=== PATIENT | female | born 1970 | race Caucasian/White ===

== ENCOUNTER 2016-09-27 15:00 | Emergency (ER) | payer BC, OTHER ==
[~2016-09-27] VITALS: Ht 154.9 cm; Wt 65.0 kg
[~2016-09-27 15:00] MED LIST: DEPO150I
[2016-09-27 15:04] VITALS: BP 143/99; PULSE 100; RESP 20; TEMP 97.8; O2SAT 98
[2016-09-27] MEDS ORDERED: [UNRECOGNIZED DRUG - REMARK] PO (15:19)
--- NOTE | 2016-09-27 15:40 | PD ---
HPI Chief Complaint: Anxiety Time Seen by Provider: 15:17 Travel History International Travel<30 days: No Contact w/Intl Traveler<30days: No Traveled to known affect area: No History of Present Illness HPI Patient is a 46-year-old female who presents to emergency room for evaluation of amnesia. Patient reports that she does not remember what happened from 9 AM until 1 PM this afternoon. 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 Patient reports that her work friend called her at 1 PM as she was as she was supposed to be on her computer working. Patient reports that she was in bed with her animals sleeping. Reports that she has no recollection of what happened from 9am until she woke up this afternoon. Reports that she did go through her phone and her work log and does know that she spoke to her boss and did work this morning. Reports "i just cant remember this morning." Patient reports no history of this in the past. Denies use of drugs/alcohol. Denies si/hi. Denies any other c/o. PFSH Past Medical History High Cholesterol: Yes Diminished Hearing: No Tetanus Vaccination: > 5 Years Influenza Vaccination: No ?: Not Menopausal: Yes : 2 Para: 1 : 1 Past Surgical History Surgical History: No Previous Surgery Social History Alcohol Use: Yes ("4-5 beers every night") Tobacco Use: Yes (Social) Substance Use: No Allergies-Medications (Allergen,Severity, Reaction): Coded Allergies: No Known Allergies (Verified , 09/27/16) Reported Meds & Prescriptions Reported Meds & Active Scripts Active Reported [Cholesterol pill] 1 Tab PO DAILY Review of Systems General / Constitutional: No: Fever Eyes: No: Visual changes HENT: No: Headaches Cardiovascular: No: Chest Pain or Discomfort Respiratory: No: Shortness of Breath Gastrointestinal: No: Abdominal Pain Genitourinary: No: Dysuria Musculoskeletal: No: Pain Skin: No Rash Neurologic: Positive: Other (amnesia), No: Weakness Psychiatric: No: Depression Endocrine: No: Polydipsia Hematologic/Lymphatic: No: Easy Bruising Physical Exam Narrative GENERAL: nad, nontoxic SKIN: Focused skin assessment warm/dry. HEAD: Atraumatic. Normocephalic. EYES: Pupils equal and round. No scleral icterus. No injection or drainage. ENT: No nasal bleeding or discharge. Mucous membranes pink and moist. NECK: Trachea midline. No JVD. CARDIOVASCULAR: Regular rate and rhythm. No murmur appreciated. RESPIRATORY: No accessory muscle use. Clear to auscultation. Breath sounds equal bilaterally. GASTROINTESTINAL: Abdomen soft, non-tender, nondistended. Hepatic and splenic margins not palpable. MUSCULOSKELETAL: No obvious deformities. No clubbing. No cyanosis. No edema. NEUROLOGICAL: Awake and alert. No obvious cranial nerve deficits. Motor grossly within normal limits. Normal speech. PSYCHIATRIC: anxious affect Data Data Last Documented VS Vital Signs Date Time Temp Pulse Resp B/P Pulse Ox O2 Delivery O2 Flow Rate FiO2 09/27/16 15:04 97.8 100 20 143/99 98 Orders Complete Blood Count With Diff (09/27/16 15:27) Comprehensive Metabolic Panel (09/27/16 15:27) Urinalysis - C+S If Indicated (09/27/16 15:27) Iv Access Insert/Monitor (09/27/16 15:27) Ecg Monitoring (09/27/16 15:27) Drug Screen, Random Urine (09/27/16 15:27) Ct Brain W/O Iv Contrast(Rout) (09/27/16 15:44) Ed Urine Pregnancytest Poc (09/27/16 15:44) Labs Laboratory Tests Test 09/27/16 09/27/16 15:30 15:35 White Blood Count 4.8 TH/MM3 Red Blood Count 4.59 MIL/MM3 Hemoglobin 14.7 GM/DL Hematocrit 43.4 % Mean Corpuscular Volume 94.5 FL Mean Corpuscular Hemoglobin 32.1 PG Mean Corpuscular Hemoglobin 34.0 % Concent Red Cell Distribution Width 12.0 % Platelet Count 221 TH/MM3 Mean Platelet Volume 6.8 FL Neutrophils (%) (Auto) 48.5 % Lymphocytes (%) (Auto) 39.1 % Monocytes (%) (Auto) 10.3 % Eosinophils (%) (Auto) 1.2 % Basophils (%) (Auto) 0.9 % Neutrophils # (Auto) 2.3 TH/MM3 Lymphocytes # (Auto) 1.9 TH/MM3 Monocytes # (Auto) 0.5 TH/MM3 Eosinophils # (Auto) 0.1 TH/MM3 Basophils # (Auto) 0.0 TH/MM3 CBC Comment DIFF FINAL Differential Comment Sodium Level 139 MEQ/L Potassium Level 3.8 MEQ/L Chloride Level 106 MEQ/L Carbon Dioxide Level 22.3 MEQ/L Anion Gap 11 MEQ/L Blood Urea Nitrogen 11 MG/DL Creatinine 0.64 MG/DL Estimat Glomerular Filtration 100 ML/MIN Rate Random Glucose 98 MG/DL Calcium Level 8.0 MG/DL Total Bilirubin 0.3 MG/DL Aspartate Amino Transf 53 U/L (AST/SGOT) Alanine Aminotransferase 50 U/L (ALT/SGPT) Alkaline Phosphatase 61 U/L Total Protein 7.4 GM/DL Albumin 3.6 GM/DL Urine Color STRAW Urine Turbidity CLEAR Urine pH 5.5 Urine Specific [place] 1.005 Urine Protein NEG mg/dL Urine Glucose (UA) NEG mg/dL Urine Ketones NEG mg/dL Urine Occult Blood NEG Urine Nitrite NEG Urine Bilirubin NEG Urine Leukocyte Esterase NEG Urine RBC 0-3 /hpf Urine WBC 0-2 /hpf Urine Squamous Epithelial 0-5 /hpf Cells Microscopic Urinalysis Comment CULT NOT INDICATED Urine Opiates Screen NEG Urine Barbiturates Screen NEG Urine Amphetamines Screen NEG Urine Benzodiazepines Screen NEG Urine Cocaine Screen NEG Urine Cannabinoids Screen NEG [facility] Medical Decision Making Medical Screen Exam Complete: Yes Emergency Medical Condition: Yes Interpretation(s) Vital Signs Date Time Temp Pulse Resp B/P Pulse Ox O2 Delivery O2 Flow Rate FiO2 09/27/16 15:04 97.8 100 20 143/99 98 Differential Diagnosis transient global amnesia is in the differential although patient does not have repetitive speech, psychogenic disorder Narrative Course 46 year old female who presents to ER with c/o of amnesia. Patient unsure of what occurred between 9-1pm this afternoon. Patient here to find out "why I can 't remember what happened." labs ordered. will place patient on monitor Laboratory Tests Test 09/27/16 09/27/16 15:30 15:35 White Blood Count 4.8 TH/MM3 (4.0-11.0) Red Blood Count 4.59 MIL/MM3 (4.00-5.30) Hemoglobin 14.7 GM/DL (11.6-15.3) Hematocrit 43.4 % (35.0-46.0) Mean Corpuscular Volume 94.5 FL (80.0-100.0) Mean Corpuscular Hemoglobin 32.1 PG (27.0-34.0) Mean Corpuscular Hemoglobin 34.0 % Concent (32.0-36.0) Red Cell Distribution Width 12.0 % (11.6-17.2) Platelet Count 221 TH/MM3 (150-450) Mean Platelet Volume 6.8 FL (7.0-11.0) Neutrophils (%) (Auto) 48.5 % (16.0-70.0) Lymphocytes (%) (Auto) 39.1 % (9.0-44.0) Monocytes (%) (Auto) 10.3 % (0.0-8.0) Eosinophils (%) (Auto) 1.2 % (0.0-4.0) Basophils (%) (Auto) 0.9 % (0.0-2.0) Neutrophils # (Auto) 2.3 TH/MM3 (1.8-7.7) Lymphocytes # (Auto) 1.9 TH/MM3 (1.0-4.8) Monocytes # (Auto) 0.5 TH/MM3 (0-0.9) Eosinophils # (Auto) 0.1 TH/MM3 (0-0.4) Basophils # (Auto) 0.0 TH/MM3 (0-0.2) CBC Comment DIFF FINAL Differential Comment Sodium Level 139 MEQ/L (136-145) Potassium Level 3.8 MEQ/L (3.5-5.1) Chloride Level 106 MEQ/L (98-107) Carbon Dioxide Level 22.3 MEQ/L (21.0-32.0) Anion Gap 11 MEQ/L (5-15) Blood Urea Nitrogen 11 MG/DL (7-18) Creatinine 0.64 MG/DL (0.50-1.00) Estimat Glomerular Filtration 100 ML/MIN Rate (>89) Random Glucose 98 MG/DL (74-106) Calcium Level 8.0 MG/DL (8.5-10.1) Total Bilirubin 0.3 MG/DL (0.2-1.0) Aspartate Amino Transf 53 U/L (15-37) (AST/SGOT) Alanine Aminotransferase 50 U/L (10-53) (ALT/SGPT) Alkaline Phosphatase 61 U/L (45-117) Total Protein 7.4 GM/DL (6.4-8.2) Albumin 3.6 GM/DL (3.4-5.0) Urine Barbiturates Screen NEG (NEG) Urine Amphetamines Screen NEG (NEG) Urine Benzodiazepines Screen NEG (NEG) Urine Cocaine Screen NEG (NEG) Urine Cannabinoids Screen NEG (NEG) CT of head with no acute intracranial process. All labs and all studies reviewed. Unsure why patient has amnesia from this morning. Patient with benign neuro exam this time. Will discharge patient to home with outpatient follow-up with neurology. Diagnosis Primary Impression: Amnesia memory loss Referrals: Jethro Krishna MD Patient Instructions: General Instructions Additional Instructions: Please follow-up with neurologist as soon as possible Please follow-up with a primary care doctor in 2-3 days Return to emergency room as needed Disposition: 01 DISCHARGE HOME Condition: Stable Aleena Schroeder DO Sep 27, 2016 15:40
[2016-09-27 15:48] LABS: AUTOMATED NEUTROPHIL # 2.3 TH/MM3 (1.8-7.7); BASOPHIL % 0.9 % (0.0-2.0); EOSINOPHIL # 0.1 TH/MM3 (0-0.4); EOSINOPHIL % 1.2 % (0.0-4.0); HEMATOCRIT 43.4 % (35.0-46.0); HEMO FLAGS DIFF FINAL; LYMPH % 39.1 % (9.0-44.0); LYMPHOCYTE # 1.9 TH/MM3 (1.0-4.8); MEAN CELL VOLUME 94.5 FL (80.0-100.0); MEAN CORPUSCULAR HEMOGLOBIN 32.1 PG (27.0-34.0); MONO % 10.3 % (0.0-8.0); NEUT % 48.5 % (16.0-70.0); PLATELET COUNT 221 TH/MM3 (150-450); RED BLOOD COUNT 4.59 MIL/MM3 (4.00-5.30); WHITE BLOOD COUNT 4.8 TH/MM3 (4.0-11.0)
[2016-09-27 15:50] LABS: BLOOD, URINE NEG (NEG); GLUCOSE,URINE NEG (NEG); KETONE, URINE NEG (NEG); NITRITE,URINE NEG (NEG); PH, URINE 5.5 (5.0-8.5)
[2016-09-27 15:55] LABS: CHLORIDE 106 MEQ/L (98-107); POTASSIUM 3.8 MEQ/L (3.5-5.1); SODIUM (NA) 139 MEQ/L (136-145)
[2016-09-27 15:59] LABS: AMPHETAMINE, URINE NEG (NEG); BARBITURATES, URINE NEG (NEG); COCAINE, URINE NEG (NEG)
[2016-09-27 15:59] LABS: ANION GAP 11 MEQ/L (5-15); BICARBONATE 22.3 MEQ/L (21.0-32.0); BLOOD UREA NITROGEN 11 MG/DL (7-18)
[2016-09-27 16:02] LABS: ALT (GPT) 50 U/L (10-53); AST (GOT) 53 U/L (15-37); GLOMERULAR FILTRATION RATE 100 ML/MIN (>89)
[2016-09-27 16:03] LABS: TOTAL BILIRUBIN ADULT 0.3 MG/DL (0.2-1.0)
[2016-09-27 16:05] LABS: ALKALINE PHOSPHATASE 61 U/L (45-117)
--- NOTE | 2016-09-27 16:23 | RADHPO ---
EXAM DATE/TIME: 09/27/2016 16:04 [place] COMPARISON: No previous studies available for comparison. INDICATIONS : Episode of amnesia. RADIATION DOSE: 64.38 CTDIvol (mGy) MEDICAL HISTORY : None SURGICAL HISTORY : None. ENCOUNTER: Initial ACUITY: 1 day PAIN SCALE: 0/10 LOCATION: cranial TECHNIQUE: Multiple contiguous axial images were obtained of the head. Using automated exposure control and adj ustment of the mA and/or kV according to patient size, radiation dose was kept as low as reasonably a chievable to obtain optimal diagnostic quality images. FINDINGS: CEREBRUM: The ventricles are normal for age. No evidence of midline shift, mass lesion, hemorrhage or acute in farction. No extra-axial fluid collections are seen. POSTERIOR FOSSA: The cerebellum and brainstem are intact. The 4th ventricle is midline. The cerebellopontine angle i s unremarkable. EXTRACRANIAL: The visualized portion of the orbits is intact. SKULL: The calvaria is intact. No evidence of skull fracture. CONCLUSION: Unremarkable exam. Reyes Thakkar MD on September 27, 2016 at 16:20 Board Certified Radiologist. This report was verified electronically.
[2016-09-27 16:26] LABS: COMMENT (UR) CULT NOT INDICATED; CULTURE IF INDICATED CULT NOT INDICATED; RBC, URINE 0-3 /hpf (0-3); SQUAMOUS EPITHELIAL CELL URINE 0-5 /hpf (0-5); URINE COLOR STRAW (YELLW/STRAW); WBC, URINE 0-2 /hpf (0-5)
== END 2016-09-27 16:48 | disposition home or self-care (01) ==
LOC: PHED 15:00
DX: R41.3 Other amnesia (principal); E78.00 Pure hypercholesterolemia, unspecified; Z72.0 Tobacco use
CPT/HCPCS: 70450; 80053; 80307; 81001; 84703; 85025

== ENCOUNTER 2016-11-23 20:30 | Emergency (ER) | payer BC ==
[~2016-11-23] VITALS: Ht 157.5 cm; Wt 63.0 kg
[~2016-11-23 20:30] MED LIST changes: -DEPO150I; +[UNRECOGNIZED DRUG - REMARK] PO
[2016-11-23 20:36] VITALS: BP 152/97; PULSE 101; RESP 24; TEMP 98.4; O2SAT 100
[2016-11-23] MEDS ORDERED: [UNRECOGNIZED DRUG - REMARK] PO (20:49)
[2016-11-23] MEDS ORDERED: SODIUM CHLOR 0.9% 1000 ML INJ 1,000 ML IV SCH (20:49)
[2016-11-23] MEDS ORDERED: ONDANSETRON HCL 4 MG/2 ML VIAL IVP ONE (21:00)
[2016-11-23] MEDS ORDERED: SODIUM CHLORIDE 0.9% FLUSH 10 ML FLUSH IV FLUSH PRN (21:00)
[2016-11-23] MEDS: SODIUM CHLOR 0.9% 1000 ML INJ 1,000 ML IV SCH ×2 (21:12→22:41)
[2016-11-23 21:13] LABS: AUTOMATED NEUTROPHIL # 9.5 TH/MM3 (1.8-7.7); BASOPHIL # 0.1 TH/MM3 (0-0.2); BASOPHIL % 0.7 % (0.0-2.0); LYMPH % 7.9 % (9.0-44.0); LYMPHOCYTE # 0.9 TH/MM3 (1.0-4.8); MEAN CELL VOLUME 94.3 FL (80.0-100.0); MEAN CORPUSCULAR HEMOGLOBIN 32.9 PG (27.0-34.0); MEAN CORPUSCULAR HGB CONC 34.9 % (32.0-36.0); MONO % 7.3 % (0.0-8.0); NEUT % 84.1 % (16.0-70.0); PLATELET COUNT 244 TH/MM3 (150-450); RED BLOOD COUNT 4.45 MIL/MM3 (4.00-5.30); RED CELL DISTRIBUTION WIDTH 12.8 % (11.6-17.2); WHITE BLOOD COUNT 11.3 TH/MM3 (4.0-11.0)
[2016-11-23 21:14] VITALS: RESP 18; O2SAT 99
[2016-11-23 21:15] LABS: BLOOD, URINE TRACE (NEG); GLUCOSE,URINE NEG (NEG); KETONE, URINE 40 mg/dL (NEG); NITRITE,URINE NEG (NEG); PH, URINE 5.5 (5.0-8.5)
[2016-11-23 21:21] LABS: URINE COLOR YELLOW (YELLW/STRAW)
[2016-11-23 21:22] LABS: COMMENT (UR) CULT NOT INDICATED; CULTURE IF INDICATED CULT NOT INDICATED; SQUAMOUS EPITHELIAL CELL URINE 0-5 /hpf (0-5)
[2016-11-23 21:23] LABS: HEMO FLAGS DIFF FINAL
[2016-11-23 21:25] LABS: CHLORIDE 95 MEQ/L (98-107); SODIUM (NA) 134 MEQ/L (136-145)
[2016-11-23 21:29] LABS: ANION GAP 17 MEQ/L (5-15); BICARBONATE 21.9 MEQ/L (21.0-32.0); BLOOD UREA NITROGEN 6 MG/DL (7-18)
[2016-11-23 21:32] LABS: ALT (GPT) 82 U/L (10-53); AST (GOT) 148 U/L (15-37); GLOMERULAR FILTRATION RATE 88 ML/MIN (>89)
[2016-11-23 21:33] LABS: TOTAL BILIRUBIN ADULT 0.8 MG/DL (0.2-1.0)
[2016-11-23 21:34] LABS: ALKALINE PHOSPHATASE 76 U/L (45-117)
[2016-11-23 22:00] VITALS: BP 161/80; PULSE 92; RESP 20; O2SAT 99
[2016-11-23] MEDS ORDERED: ONDANSETRON HCL 4 MG/2 ML VIAL IV ONE (22:15)
[2016-11-23] MEDS ORDERED: POTASSIUM CHLORIDE 20 MEQ CONTROLLED RELEASE TAB PO ONE (22:30)
--- NOTE | 2016-11-23 22:58 | PD ---
HPI Chief Complaint: GI Complaint Time Seen by Provider: 20:49 Travel History International Travel<30 days: No Contact w/Intl Traveler<30days: No Traveled to known affect area: No History of Present Illness HPI The patient is a 46-year-old female complains of nausea, vomiting and diarrhea without any abdominal pain for 2 days. She also has had chills but has not recorded any fever at home. She denies any major medical problems or bowel problems. She does feel weak and dehydrated. She denies any blood in the stool or vomitus. She still has her appendix and gallbladder. She has been replacing her fluids with hypotonic solutions, mostly water. The patient states she has always been a heavy drinker. PFS Past Medical History High Cholesterol: Yes Diminished Hearing: No Immunizations Current: No Tetanus Vaccination: Unknown Influenza Vaccination: No ?: Not Menopausal: Yes : 2 Para: 1 : 1 Social History Alcohol Use: Yes ("4-5 beers every night") Tobacco Use: Yes (Social) Substance Use: No Allergies-Medications (Allergen,Severity, Reaction): Coded Allergies: No Known Allergies (Verified , 11/23/16) Reported Meds & Prescriptions Reported Meds & Active Scripts Active Phenergan (Promethazine HCl) 25 Mg Tablet 25 Mg PO Q6H PRN Reported [Antidepresant Med] 1 Caplet PO DAILY Review of Systems Except as stated in HPI: all other systems reviewed are Neg Physical Exam Narrative GENERAL: The patient is alert, moderately dehydrated appearing, oriented 3 in slight apparent distress with her nausea. Her vital signs show blood pressure 152/97 with a heart rate of 101 and respirations 24 but are otherwise normal. SKIN: Focused skin assessment warm/dry. HEAD: Atraumatic. Normocephalic. EYES: Pupils equal and round. No scleral icterus. No injection or drainage. ENT: No nasal bleeding or discharge. Mucous membranes pink and minimally dry. NECK: Trachea midline. No JVD. CARDIOVASCULAR: Regular rate and rhythm. No murmur appreciated. RESPIRATORY: No accessory muscle use. Clear to auscultation. Breath sounds equal bilaterally. GASTROINTESTINAL: Abdomen soft, non-tender, nondistended. Hepatic and splenic margins not palpable. No guarding or rebound is present. MUSCULOSKELETAL: No obvious deformities. No clubbing. No cyanosis. No edema. NEUROLOGICAL: Awake and alert. No obvious cranial nerve deficits. Motor grossly within normal limits. Normal speech. PSYCHIATRIC: Appropriate mood and affect; insight and judgment normal. Data Data Last Documented VS Vital Signs Date Time Temp Pulse Resp B/P Pulse Ox O2 Delivery O2 Flow Rate FiO2 11/23/16 21:15 20 11/23/16 21:14 99 Room Air 11/23/16 20:36 98.4 101 152/97 Orders Complete Blood Count With Diff (11/23/16 20:49) Comprehensive Metabolic Panel (11/23/16 20:49) Lipase (11/23/16 20:49) Urinalysis - C+S If Indicated (11/23/16 20:49) Iv Access Insert/Monitor (11/23/16 20:49) Ecg Monitoring (11/23/16 20:49) Oximetry (11/23/16 20:49) Ondansetron Inj (Zofran Inj) (11/23/16 21:00) Sodium Chlor 0.9% 1000 Ml Inj (Ns 1000 M (11/23/16 20:49) Sodium Chloride 0.9% Flush (Ns Flush) (11/23/16 21:00) Sodium Chlor 0.9% 1000 Ml Inj (Ns 1000 M (11/23/16 21:00) Ondansetron Inj (Zofran Inj) (11/23/16 22:15) Potassium Chloride (Kcl) (11/23/16 22:30) Labs Laboratory Tests Test 11/23/16 11/23/16 21:00 21:05 Urine Color YELLOW Urine Turbidity CLEAR Urine pH 5.5 Urine Specific [place] 1.020 Urine Protein TRACE mg/dL Urine Glucose (UA) NEG mg/dL Urine Ketones 40 mg/dL Urine Occult Blood TRACE Urine Nitrite NEG Urine Bilirubin NEG Urine Leukocyte Esterase NEG Urine Squamous Epithelial 0-5 /hpf Cells Microscopic Urinalysis Comment CULT NOT INDICATED White Blood Count 11.3 TH/MM3 Red Blood Count 4.45 MIL/MM3 Hemoglobin 14.6 GM/DL Hematocrit 42.0 % Mean Corpuscular Volume 94.3 FL Mean Corpuscular Hemoglobin 32.9 PG Mean Corpuscular Hemoglobin 34.9 % Concent Red Cell Distribution Width 12.8 % Platelet Count 244 TH/MM3 Mean Platelet Volume 6.7 FL Neutrophils (%) (Auto) 84.1 % Lymphocytes (%) (Auto) 7.9 % Monocytes (%) (Auto) 7.3 % Eosinophils (%) (Auto) 0.0 % Basophils (%) (Auto) 0.7 % Neutrophils # (Auto) 9.5 TH/MM3 Lymphocytes # (Auto) 0.9 TH/MM3 Monocytes # (Auto) 0.8 TH/MM3 Eosinophils # (Auto) 0.0 TH/MM3 Basophils # (Auto) 0.1 TH/MM3 CBC Comment DIFF FINAL Differential Comment Sodium Level 134 MEQ/L Potassium Level 3.0 MEQ/L Chloride Level 95 MEQ/L Carbon Dioxide Level 21.9 MEQ/L Anion Gap 17 MEQ/L Blood Urea Nitrogen 6 MG/DL Creatinine 0.72 MG/DL Estimat Glomerular Filtration 88 ML/MIN Rate Random Glucose 131 MG/DL Calcium Level 8.8 MG/DL Total Bilirubin 0.8 MG/DL Aspartate Amino Transf 148 U/L (AST/SGOT) Alanine Aminotransferase 82 U/L (ALT/SGPT) Alkaline Phosphatase 76 U/L Total Protein 7.6 GM/DL Albumin 3.7 GM/DL Lipase 89 U/L MDM Medical Decision Making Medical Screen Exam Complete: Yes Emergency Medical Condition: Yes Medical Record Reviewed: Yes Interpretation(s) The complete metabolic profile shows a GFR of 88, glucose 131, GOT 148, GPT 82 with sodium 134, potassium 3.0 and anion gap of 17. The lipase is normal. The CBC shows a white count of 11,300 with 84% neutrophils but is otherwise unremarkable. The urine shows trace protein, 40 ketones, trace occult blood but is otherwise normal and culture is not indicated. Differential Diagnosis Viral gastroenteritis, bacterial enteritis, appendicitisunlikely, cholelithiasis with colicunlikely, acute cholecystitisunlikely, urinary tract infection, electrolyte disorder, anemia, pancreatitis Narrative Course It is now 1106 and the patient feels much better. She has drank one glass of Gatorade and has received 2000 cc of saline IV. The nausea has subsided to only minimal nausea. The urine shows evidence of dehydration with 40 ketones. The complete metabolic profile reflects the patient's hypotonic fluid replacement with a low sodium and low potassium. She is told to use Pedialyte or Gatorade. The patient previously had a slight elevation of the AST in September of this year. The elevation of her liver enzymes is probably due to her "heavy drinking". Impression: Viral gastroenteritis Plan: The patient is given Phenergan and told to drink clear liquids such as Pedialyte or Gatorade. Diagnosis Primary Impression: Viral gastroenteritis Additional Impression: Mild dehydration Additional Instructions: As we discussed, increase clear liquids with fluids like Pedialyte or Gatorade. This will replace some of the salts like sodium and potassium that she lose. Stay away from alcohol, that is a very dehydrating substance. Follow-up with your primary care physician next week. Take the Phenergan regularly, 1 every 6 hours initially so that you do not started vomiting again. Med/Other Pt SpecificInfo: Prescription(s) given Scripts Promethazine (Phenergan)25 Mg [id number] Mg PO Q6H PRN (NAUSEA OR VOMITING) #30 TAB Ref 0 Prov:Messi Thompson MD 11/23/16 Disposition: 01 DISCHARGE HOME Condition: Stable Messi Thompson MD Nov 23, 2016 22:58
[2016-11-23] MEDS ORDERED: PROM25TA10 PO (23:13)
[2016-11-23 23:39] VITALS: BP 155/85
== END 2016-11-23 23:35 | disposition home or self-care (01) ==
LOC: PHED 20:30
DX: A08.4 Viral intestinal infection, unspecified (principal); E86.0 Dehydration; E78.00 Pure hypercholesterolemia, unspecified; R68.83 Chills (without fever)
CPT/HCPCS: 80053; 81001; 83690; 85025; 96374; 96376; 99284; J2405; J7030

== ENCOUNTER 2017-09-17 22:14 | Inpatient (IN) | payer BC ==
[~2017-09-17] VITALS: Ht 157.5 cm; Wt 65.9 kg
[~2017-09-17 22:14] MED LIST changes: +PROM25TA10 PO; +[UNRECOGNIZED DRUG - REMARK] PO; -[UNRECOGNIZED DRUG - REMARK] PO
[2017-09-17 22:19] VITALS: BP 174/91; PULSE 119; RESP 20; TEMP 98.2; O2SAT 98
[2017-09-17] MEDS ORDERED: SODIUM CHLOR 0.9% 1000 ML INJ 1,000 ML IV SCH (23:06)
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
[2017-09-17] MEDS ORDERED: MORPHINE SULFATE 4 MG/ML INJ IV PUSH ONE (23:15)
[2017-09-17] MEDS ORDERED: SODIUM CHLORIDE 0.9% FLUSH 10 ML FLUSH IV FLUSH PRN (23:15)
[2017-09-17] MEDS ORDERED: ONDANSETRON HCL 4 MG/2 ML VIAL IVP ONE (23:15)
[2017-09-17] MEDS ORDERED: anti anxiety (23:26)
[2017-09-17] MEDS ORDERED: SODIUM CHLOR 0.9% 1000 ML INJ 1,000 ML IV ONE (23:30)
--- NOTE | 2017-09-17 23:40 | RADRPT ---
EXAM DATE/TIME: 09/17/2017 23:13 [facility] COMPARISON: No previous studies available for comparison. INDICATIONS : Nausea and vomiting with epigastric pain. MEDICAL HISTORY : None. SURGICAL HISTORY : None. ENCOUNTER: Initial ACUITY: 2 days PAIN SCORE: 6/10 LOCATION: Epigastric. FINDINGS: A single view of the chest demonstrates the lungs to be symmetrically aerated without evidence of mas s, infiltrate or effusion. The cardiomediastinal contours are unremarkable. Osseous structures are intact. CONCLUSION: No acute cardiopulmonary disease. Colby Hernandez MD on September 17, 2017 at 23:38 Board Certified Radiologist. This report was verified electronically.
[2017-09-17 23:56] LABS: AUTOMATED NEUTROPHIL # 11.1 TH/MM3 (1.8-7.7); BASOPHIL # 0.1 TH/MM3 (0-0.2); BASOPHIL % 0.6 % (0.0-2.0); HEMATOCRIT 44.1 % (35.0-46.0); HEMOGLOBIN 15.1 GM/DL (11.6-15.3); LYMPH % 5.6 % (9.0-44.0); LYMPHOCYTE # 0.7 TH/MM3 (1.0-4.8); MEAN CELL VOLUME 92.2 FL (80.0-100.0); MEAN CORPUSCULAR HEMOGLOBIN 31.5 PG (27.0-34.0); MEAN CORPUSCULAR HGB CONC 34.2 % (32.0-36.0); MEAN PLATELET VOLUME 6.8 FL (7.0-11.0); MONO % 5.6 % (0.0-8.0); MONOCYTE # 0.7 TH/MM3 (0-0.9); NEUT % 88.2 % (16.0-70.0); PLATELET COUNT 295 TH/MM3 (150-450); RED BLOOD COUNT 4.78 MIL/MM3 (4.00-5.30); WHITE BLOOD COUNT 12.6 TH/MM3 (4.0-11.0)
[2017-09-17 23:57] LABS: PROTHROMBIN TIME - PATIENT 10.6 SEC (9.8-11.6)
[2017-09-18] VITALS (11 sets, daily range): BP systolic 137–178; BP diastolic 73–97; PULSE 67–115; RESP 14–22; TEMP 97.1–99.8; O2SAT 97–98
[2017-09-18] MEDS ORDERED: PIPERACIL-TAZO 4.5 GM PREMIX 100 ML IV STA (00:06)
[2017-09-18 00:11] LABS: ALBUMIN 3.6 GM/DL (3.4-5.0); ALKALINE PHOSPHATASE 91 U/L (45-117); ALT (GPT) 74 U/L (10-53); AST (GOT) 136 U/L (15-37); BICARBONATE 21.2 MEQ/L (21.0-32.0); BLOOD UREA NITROGEN 4 MG/DL (7-18); CALCIUM 8.7 MG/DL (8.5-10.1); CHLORIDE 96 MEQ/L (98-107); CREATININE 0.82 MG/DL (0.50-1.00); GLOMERULAR FILTRATION RATE 75 ML/MIN (>89); GLUCOSE,RANDOM 155 MG/DL (74-106); SODIUM (NA) 133 MEQ/L (136-145); TOTAL BILIRUBIN ADULT 1.4 MG/DL (0.2-1.0); TOTAL PROTEIN 7.7 GM/DL (6.4-8.2)
[2017-09-18] MEDS ORDERED: SODIUM CHLOR 0.9% 1000 ML INJ 1,000 ML IV ONE ×2 (00:15→09:00)
[2017-09-18] MEDS: POTASSIUM CHLOR 20 MEQ PREMIX 100 ML IV SCH ×2 (00:44→03:01)
--- NOTE | 2017-09-18 00:44 | PD ---
Physical Exam Date Seen by Provider: Sep 18, 2017 Time Seen by Provider: 00:41 Narrative accepted in transfer of care from Dr Schroeder Data Data Last Documented VS Vital Signs Date Time Temp Pulse Resp B/P (MAP) Pulse Ox O2 Delivery O2 Flow Rate FiO2 09/17/17 23:29 Room Air 09/17/17 22:19 98.2 119 20 98 Orders Orders Complete Blood Count With Diff (09/17/17 23:06) Comprehensive Metabolic Panel (09/17/17 23:06) Lipase (09/17/17 23:06) Lactic Acid (09/17/17 23:06) Prothrombin Time / Inr (Pt) (09/17/17 23:06) Act Partial Throm Time (Ptt) (09/17/17 23:06) Urinalysis - C+S If Indicated (09/17/17 23:06) Ct Abd/Pel W Iv Contrast(Rout) (09/17/17 23:06) Iv Access Insert/Monitor (09/17/17 23:06) Ecg Monitoring (09/17/17 23:06) Oximetry (09/17/17 23:06) NPO (09/17/17 23:06) Morphine Inj (Morphine Inj) (09/17/17 23:15) Ondansetron Inj (Zofran Inj) (09/17/17 23:15) Sodium Chlor 0.9% 1000 Ml Inj (Ns 1000 M (09/17/17 23:06) Sodium Chloride 0.9% Flush (Ns Flush) (09/17/17 23:15) Chest, Single Ap (09/17/17 23:06) Ed Urine Pregnancytest Poc (09/17/17 23:06) Ct Brain W/O Iv Contrast(Rout) (09/17/17 23:18) Sodium Chlor 0.9% 1000 Ml Inj (Ns 1000 M (09/17/17 23:30) Drug Screen, Random Urine (09/17/17 23:19) Sepsis Workup Initiated (09/18/17 ) Influenzae A/B Antigen (09/18/17 00:06) Blood Culture (09/18/17 00:06) Piperacil-Tazo 4.5 Gm Premix (Zosyn 4.5 (09/18/17 00:06) Sodium Chlor 0.9% 1000 Ml Inj (Ns 1000 M (09/18/17 00:15) Potassium Chlor 20 Meq Premix (Kcl 20 Me (09/18/17 00:30) Electrocardiogram (09/18/17 ) Labs Laboratory Tests Test 09/17/17 23:33 09/18/17 00:33 White Blood Count 12.6 TH/MM3 Red Blood Count 4.78 MIL/MM3 Hemoglobin 15.1 GM/DL Hematocrit 44.1 % Mean Corpuscular Volume 92.2 FL Mean Corpuscular Hemoglobin 31.5 PG Mean Corpuscular Hemoglobin Concent 34.2 % Red Cell Distribution Width 12.0 % Platelet Count 295 TH/MM3 Mean Platelet Volume 6.8 FL Neutrophils (%) (Auto) 88.2 % Lymphocytes (%) (Auto) 5.6 % Monocytes (%) (Auto) 5.6 % Eosinophils (%) (Auto) 0.0 % Basophils (%) (Auto) 0.6 % Neutrophils # (Auto) 11.1 TH/MM3 Lymphocytes # (Auto) 0.7 TH/MM3 Monocytes # (Auto) 0.7 TH/MM3 Eosinophils # (Auto) 0.0 TH/MM3 Basophils # (Auto) 0.1 TH/MM3 CBC Comment DIFF FINAL Differential Comment Prothrombin Time 10.6 SEC Prothromb Time International Ratio 1.0 RATIO Activated Partial Thromboplast Time 22.4 SEC Blood Urea Nitrogen 4 MG/DL Creatinine 0.82 MG/DL Random Glucose 155 MG/DL Total Protein 7.7 GM/DL Albumin 3.6 GM/DL Calcium Level 8.7 MG/DL Alkaline Phosphatase 91 U/L Aspartate Amino Transf (AST/SGOT) 136 U/L Alanine Aminotransferase (ALT/SGPT) 74 U/L Total Bilirubin 1.4 MG/DL Sodium Level 133 MEQ/L Potassium Level 2.9 MEQ/L Chloride Level 96 MEQ/L Carbon Dioxide Level 21.2 MEQ/L Anion Gap 16 MEQ/L Estimat Glomerular Filtration Rate 75 ML/MIN Lactic Acid Level 3.7 mmol/L Lipase 80 U/L [facility] Medical Record Reviewed: Yes Supervised Visit with CHASITY: No Interpretation(s) EKG: Sinus tachycardia rate [address] elevation injury pattern or ectopy noted lactic acid: 3.7, elevated Last Impressions Chest X-Ray 09/17/17 7017 Signed Impressions: Service Date/Time: Sunday, September 17, 2017 23:13 - CONCLUSION: No acute cardiopulmonary disease. Colby Hernandez MD CBC & BMP Diagram 09/17/17 23:33 Total Protein 7.7, Albumin 3.6, Calcium Level 8.7, Alkaline Phosphatase 91, Aspartate Amino Transf (AST/SGOT) 136 H, Alanine Aminotransferase (ALT/SGPT) 74 H, Total Bilirubin 1.4 H Vital Signs Date Time Temp Pulse Resp B/P (MAP) Pulse Ox O2 Delivery O2 Flow Rate FiO2 09/17/17 23:29 Room Air 09/17/17 22:19 98.2 119 20 174/91 (118) 98 Differential Diagnosis accepted in transfer of care from Dr Schroeder; please refer to her dictation Narrative Course accepted in transfer of care from Dr Schroeder; follow up CT's and admission Sepsis Criteria SIRS Criteria (2 or more): Heart rate over 90, WBC > 01213, < 4000 or > 10% bands Severe Sepsis (+one): Lactate >2 Physician Communication Physician Communication call placed to [facility] service for admission Diagnosis Primary Impression: Lactic acidosis Additional Impression: Hypokalemia Admitting Information Admitting Physician Requests: Admit Jacqueline Calzada MD Sep 18, 2017 00:44
[2017-09-18 01:09] LABS: BILIRUBIN, URINE NEG (NEG); BLOOD, URINE NEG (NEG); GLUCOSE,URINE NEG (NEG); KETONE, URINE 15 mg/dL (NEG); NITRITE,URINE NEG (NEG); PH, URINE 5.5 (5.0-8.5); URINE COLOR YELLOW (YELLW/STRAW); URINE LEUKOCYTE ESTERASE NEG (NEG)
[2017-09-18] MEDS ORDERED: IOHEXOL 350 MG/ML 10 ML VIAL (for RAD DIAG) IVCONTRAST ONE (01:13)
[2017-09-18 01:16] LABS: HYALINE CAST, URINE 0-2 /lpf (RARE); SQUAMOUS EPITHELIAL CELL URINE 0-5 /hpf (0-5)
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
[2017-09-18 01:20] LABS: BACTERIA, URINE FEW /hpf
--- NOTE | 2017-09-18 01:21 | RADRPT ---
EXAM DATE/TIME: 09/18/2017 00:53 [facility] COMPARISON: No previous studies available for comparison. INDICATIONS : Nausea. Vomiting. Diarrhea. IV CONTRAST: 100 cc Omnipaque 350 (iohexol) IV ORAL CONTRAST: No oral contrast ingested. RADIATION DOSE: 10.44 CTDIvol (mGy) MEDICAL HISTORY : None SURGICAL HISTORY : None. ENCOUNTER: Initial ACUITY: 1 day PAIN SCALE: 0/10 LOCATION: abdomen and pelvis. TECHNIQUE: Volumetric scanning of the abdomen and pelvis was performed. Using automated exposure control and ad justment of the mA and/or kV according to patient size, radiation dose was kept as low as reasonably achievable to obtain optimal diagnostic quality images. DICOM format image data is available electro nically for review and comparison. FINDINGS: LOWER LUNGS: The visualized lower lungs are clear. LIVER: Homogeneous fatty density without lesion. There is no dilation of the biliary tree. No calcified ga llstones. SPLEEN: Normal size without lesion. PANCREAS: Within normal limits. KIDNEYS: Normal in size and shape. There is no mass, stone or hydronephrosis. ADRENAL GLANDS: Within normal limits. VASCULAR: There is no aortic aneurysm. BOWEL/MESENTERY: The stomach, small bowel, and colon demonstrate no acute abnormality. There is no free intraperitone al air or fluid. Normal appendix. ABDOMINAL WALL: Within normal limits. RETROPERITONEUM: There is no lymphadenopathy. BLADDER: No wall thickening or mass. REPRODUCTIVE: Within normal limits. IUD present. INGUINAL: There is no lymphadenopathy or hernia. MUSCULOSKELETAL: No acute bony abnormality. CONCLUSION: 1. No acute abnormality. 2. Fatty liver. Colby Hernandez MD on September 18, 2017 at 1:17 Board Certified Radiologist. This report was verified electronically.
[2017-09-18] MEDS: SODIUM CHLOR 0.9% 1000 ML INJ 1,000 ML IV SCH ×3 (01:36→20:43)
[2017-09-18] MEDS ORDERED: LACTULOSE SYRUP 20 GM/30 ML CUP PO PRN (01:45)
[2017-09-18] MEDS ORDERED: BISACODYL 10 MG SUPP RECTAL PRN (01:45)
[2017-09-18] MEDS ORDERED: ONDANSETRON HCL 4 MG/2 ML VIAL IVP PRN (01:45)
[2017-09-18] MEDS ORDERED: ACETAMINOPHEN 325 MG TAB PO PRN (01:45)
[2017-09-18] MEDS ORDERED: SODIUM CHLORIDE 0.9% FLUSH 10 ML FLUSH IV FLUSH PRN (01:45)
[2017-09-18] MEDS ORDERED: NALOXONE HCL 0.4 MG/ML AMP IV PUSH PRN (01:45)
[2017-09-18] MEDS ORDERED: SENNOSIDES 8.6 MG TAB PO PRN (01:45)
[2017-09-18] MEDS ORDERED: MAGNESIUM HYDROXIDE SUSP 30 ML CUP PO PRN (01:45)
[2017-09-18] MEDS ORDERED: PHENOL 1.4% SOLN 180 ML BTL OROPHARYNG PRN (06:00)
[2017-09-18] MEDS: SODIUM CHLORIDE 0.9% FLUSH 10 ML FLUSH IV FLUSH SCH ×2 (08:32→20:42)
[2017-09-18] MEDS: DOCUSATE SODIUM 50 MG/SENNA 8.6 MG TAB PO SCH ×2 (08:32→20:41)
[2017-09-18] MEDS ORDERED: THIAMINE INJ 100 MG in SODIUM CHLORIDE 0.9% INJ 100 ML IV ONE (09:00)
[2017-09-18] MEDS ORDERED: THIAMINE HCL 100 MG TAB PO ONE (09:00)
[2017-09-18 09:41] LABS: AUTOMATED NEUTROPHIL # 6.8 TH/MM3 (1.8-7.7); BASOPHIL % 0.3 % (0.0-2.0); EOSINOPHIL % 0.3 % (0.0-4.0); HEMATOCRIT 39.3 % (35.0-46.0); HEMOGLOBIN 13.6 GM/DL (11.6-15.3); LYMPH % 17.6 % (9.0-44.0); LYMPHOCYTE # 1.6 TH/MM3 (1.0-4.8); MEAN CELL VOLUME 92.7 FL (80.0-100.0); MEAN CORPUSCULAR HEMOGLOBIN 32.2 PG (27.0-34.0); MEAN CORPUSCULAR HGB CONC 34.7 % (32.0-36.0); MEAN PLATELET VOLUME 7.1 FL (7.0-11.0); MONO % 9.8 % (0.0-8.0); MONOCYTE # 0.9 TH/MM3 (0-0.9); PLATELET COUNT 223 TH/MM3 (150-450); RED BLOOD COUNT 4.24 MIL/MM3 (4.00-5.30); RED CELL DISTRIBUTION WIDTH 12.5 % (11.6-17.2); WHITE BLOOD COUNT 9.3 TH/MM3 (4.0-11.0)
[2017-09-18 10:12] LABS: ALBUMIN 2.8 GM/DL (3.4-5.0); CALCIUM 7.3 MG/DL (8.5-10.1); CALCIUM-PROTEIN CORRECTED 7.7 MG/DL (8.5-10.1); CREATININE 0.63 MG/DL (0.50-1.00); MAGNESIUM 1.7 MG/DL (1.5-2.5); TOTAL PROTEIN 6.3 GM/DL (6.4-8.2)
[2017-09-18 10:17] LABS: BICARBONATE 22.9 MEQ/L (21.0-32.0)
[2017-09-18 10:20] LABS: TOTAL BILIRUBIN ADULT 1.2 MG/DL (0.2-1.0)
[2017-09-18] MEDS: PIPERACIL-TAZO 4.5 GM PREMIX 100 ML IV SCH ×3 (10:44→20:43)
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
[2017-09-18 12:14] LABS: DIRECT BILIRUBIN ADULT 0.3 MG/DL (0.0-0.2); INDIRECT BILIRUBIN 0.9 MG/DL (0.0-0.8)
[2017-09-18] MEDS: PANTOPRAZOLE SODIUM 40 MG VIAL IV PUSH SCH (12:17)
--- NOTE | 2017-09-18 15:33 | EKG ---
Date Performed: 09/18/2017 Time Performed: 00:36:27 PTAGE: 47 years EKG: SINUS TACHYCARDIA ABNORMAL RHYTHM ECG NO PREVIOUS TRACING DOCTOR: Tru Ring Interpretating Date/Time 09/18/2017 15:23:36
[2017-09-18] MEDS ORDERED: ENALAPRILAT 1.25 MG/ML VIAL IV PUSH PRN (22:45)
[2017-09-19] VITALS: BP 161/78; PULSE 65; RESP 20; TEMP 98.1; O2SAT 99
[2017-09-19] MEDS: PANTOPRAZOLE SODIUM 40 MG VIAL IV PUSH SCH ×2 (00:38→13:18)
[2017-09-19 02:58] VITALS: PULSE 100
[2017-09-19] MEDS: PIPERACIL-TAZO 4.5 GM PREMIX 100 ML IV SCH ×3 (03:41→13:19)
[2017-09-19 04:00] VITALS: BP 139/84; PULSE 61; RESP 20; TEMP 97.1; O2SAT 98
[2017-09-19 06:26] LABS: AUTOMATED NEUTROPHIL # 3.1 TH/MM3 (1.8-7.7); BASOPHIL % 0.4 % (0.0-2.0); EOSINOPHIL # 0.1 TH/MM3 (0-0.4); EOSINOPHIL % 1.2 % (0.0-4.0); HEMOGLOBIN 12.5 GM/DL (11.6-15.3); LYMPH % 25.2 % (9.0-44.0); LYMPHOCYTE # 1.3 TH/MM3 (1.0-4.8); MEAN CELL VOLUME 92.9 FL (80.0-100.0); MEAN CORPUSCULAR HEMOGLOBIN 31.5 PG (27.0-34.0); MEAN CORPUSCULAR HGB CONC 33.9 % (32.0-36.0); MEAN PLATELET VOLUME 7.1 FL (7.0-11.0); MONO % 9.1 % (0.0-8.0); MONOCYTE # 0.5 TH/MM3 (0-0.9); NEUT % 64.1 % (16.0-70.0); PLATELET COUNT 189 TH/MM3 (150-450); RED BLOOD COUNT 3.98 MIL/MM3 (4.00-5.30); RED CELL DISTRIBUTION WIDTH 12.1 % (11.6-17.2)
[2017-09-19 06:48] LABS: CHLORIDE 106 MEQ/L (98-107); SODIUM (NA) 140 MEQ/L (136-145)
[2017-09-19 06:52] LABS: CALCIUM 7.8 MG/DL (8.5-10.1)
[2017-09-19 06:53] LABS: ALBUMIN 2.7 GM/DL (3.4-5.0); BICARBONATE 24.9 MEQ/L (21.0-32.0); BLOOD UREA NITROGEN 2 MG/DL (7-18); GLUCOSE,RANDOM 86 MG/DL (74-106)
[2017-09-19 06:56] LABS: ALT (GPT) 51 U/L (10-53); AST (GOT) 92 U/L (15-37); CREATININE 0.67 MG/DL (0.50-1.00); GLOMERULAR FILTRATION RATE 95 ML/MIN (>89)
[2017-09-19 06:57] LABS: TOTAL BILIRUBIN ADULT 1.2 MG/DL (0.2-1.0)
[2017-09-19 06:59] LABS: ALKALINE PHOSPHATASE 69 U/L (45-117)
[2017-09-19] MEDS: SODIUM CHLOR 0.9% 1000 ML INJ 1,000 ML IV SCH (07:36)
[2017-09-19] MEDS ORDERED: POTASSIUM CHLORIDE 10 MEQ CONTROLLED RELEASE TAB PO ONE ×2 (07:45→14:30)
[2017-09-19] MEDS: SODIUM CHLORIDE 0.9% FLUSH 10 ML FLUSH IV FLUSH SCH (07:54)
[2017-09-19] MEDS: DOCUSATE SODIUM 50 MG/SENNA 8.6 MG TAB PO SCH (07:54)
[2017-09-19 08:00] VITALS: BP 145/82; PULSE 79; RESP 16; TEMP 98.1; O2SAT 98
--- NOTE | 2017-09-19 08:02 | HHI.PR ---
Subjective Remarks Called for incidental sinus finding. Objective Vital Signs Date Time Temp Pulse Resp B/P (MAP) Pulse Ox O2 Delivery O2 Flow Rate FiO2 09/19/17 04:00 97.1 61 20 139/84 (102) 98 09/19/17 02:58 100 09/19/17 00:00 98.1 65 20 161/78 (105) 99 09/18/17 22:55 162/90 (114) Automatic Cuff 09/18/17 20:49 99.8 67 22 162/97 (118) 97 09/18/17 17:00 75 09/18/17 16:00 97.4 81 14 154/93 (113) 98 09/18/17 12:30 98.4 78 18 149/88 (108) 97 09/18/17 09:37 81 I/O 09/18/17 09/18/17 09/18/17 09/19/17 09/19/17 09/19/17 07:00 15:00 23:00 07:00 15:00 23:00 Intake Total 3528 ml 1641 ml 775 ml 1183 ml Balance 3528 ml 1641 ml 775 ml 1183 ml Intake Oral 40 ml 0 ml IV Total 3528 ml 1601 ml 775 ml 1183 ml # Voids 2 5 6 # Bowel Movements 2 6 Result Diagram: 09/19/17 0525 09/19/17 0525 Assessment and Plan Assessment and Plan Chart reviewed. Small incidental spenoid sinus fluid. Treating emergency at the [facility] Main. Will see on PO rounds later today. Brandon Morales MD Sep 19, 2017 08:02
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
[2017-09-19] MEDS ORDERED: THIAMINE HCL 100 MG TAB PO SCH (09:00)
[2017-09-19 12:00] VITALS: BP 138/80; PULSE 80; RESP 16; TEMP 98; O2SAT 98
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
[2017-09-19] MEDS ORDERED: [UNRECOGNIZED DRUG - CODE] NASAL (14:30)
[2017-09-19] MEDS ORDERED: AMOX875T2 PO (14:30)
[2017-09-19] MEDS ORDERED: AMOXICILLIN/CLAVULANATE K 875 MG TAB PO SCH (14:30)
[2017-09-19] MEDS ORDERED: CROMOLYN SODIUM 5.2 MG/ACT 13 ML NASAL SPRAY NASAL SCH (22:00)
== END 2017-09-19 15:42 | disposition home or self-care (01) | DRG 641 ==
LOC: PHED 22:14 → PHEDA 09-18 01:41 → OBSVTOIN 09-18 01:41 → PH3A 09-18 04:33
PROVIDERS: ADMIT Hospitalist; ATTEND Hospitalist
DX: E87.2 Acidosis (principal); E86.0 Dehydration; K76.0 Fatty (change of) liver, not elsewhere classified; E51.9 Thiamine deficiency, unspecified; R41.3 Other amnesia; E87.6 Hypokalemia; J02.9 Acute pharyngitis, unspecified; R74.0 Nonspecific elevation of levels of transaminase and lactic acid dehydrogenase [LDH]; K52.9 Noninfective gastroenteritis and colitis, unspecified; F10.20 Alcohol dependence, uncomplicated; S70.02XA Contusion of left hip, initial encounter; S80.11XA Contusion of right lower leg, initial encounter; S00.83XA Contusion of other part of head, initial encounter; Y04.8XXA Assault by other bodily force, initial encounter; Z72.0 Tobacco use; E78.00 Pure hypercholesterolemia, unspecified; R00.0 Tachycardia, unspecified
CPT/HCPCS: 70450; 71045; 74177; 80053; 80074; 80307; 81001; 82248; 82550; 82552; 83605; 83690; 83735; 84703; 85018; 85025; 85610; 85730; 87040; 87493; 87804; 93005; C9113; G0481; J2270; J2405; J2543; J3411; J3480; J7030; Q9967